=== PATIENT | male | born 1945 | race Caucasian/White ===

== ENCOUNTER 2016-09-11 07:31 | Day surgery (SDC) | payer MEDICARE ==
[~2016-09-11] VITALS: Ht 180.3 cm; Wt 138.0 kg
[2016-09-11] VITALS (8 sets, daily range): BP systolic 107–131; BP diastolic 62–83
[~2016-09-11 07:31] MED LIST: LACTATED RINGERS 1,000 ML IV SCH; SODIUM CHLORIDE FLUSH 3 ML SYR IV PRN
[2016-09-11] MEDS ORDERED: MIDAZOLAM 2 MG/2 ML (VERSED) VIAL ONE (08:38)
[2016-09-11] MEDS ORDERED: PROPOFOL 20 ML IV ONE (08:38)
[2016-09-11] MEDS ORDERED: ALFENTANIL 500 MCG/ML (ALFENTA) 5 ML AMP IV ONE (08:38)
--- NOTE | 2016-09-11 12:19 | NUR ---
PATIENT INSTRUCTED TO WEAR CPAP TODAY WHILE RESTING. ENCOURAGED TO REDO SLEEP STUDY AND/OR START WEARING CPAP AT NIGHT AGAIN.
== END 2016-09-11 12:29 | disposition home or self-care (01) ==
LOC: ASC 07:31
PROVIDERS: ATTEND Surgery
DX: Z12.11 Encounter for screening for malignant neoplasm of colon (principal); K62.1 Rectal polyp
CPT/HCPCS: 45390; 88305; J2250; J7120